=== PATIENT | male | born 1945 | race Caucasian/White ===

== ENCOUNTER → 2016-12-12 | Outpatient (CLI) | payer MEDICARE, OTHER ==
[~2016-12-12] MED LIST: COZAAR100 MG PO; GLUCOPHAGE XR500 MG PO; HALFPRIN81 MG PO; LANTUS100 UNIT/1 SUBCUT; LIPITOR80 MG PO; NORVASC5 MG PO; PROTONIX40 MG PO; TOPROL XL50 MG PO
== END | disposition short-term general hospital (02) ==
LOC: CLCARD 02:39
DX: I25.10 Atherosclerotic heart disease of native coronary artery without angina pectoris (principal); I10 Essential (primary) hypertension; E78.5 Hyperlipidemia, unspecified; E11.9 Type 2 diabetes mellitus without complications; G47.30 Sleep apnea, unspecified; J44.9 Chronic obstructive pulmonary disease, unspecified; C61 Malignant neoplasm of prostate; E66.9 Obesity, unspecified; Z95.5 Presence of coronary angioplasty implant and graft